=== PATIENT | male | born 1965 | race Caucasian/White ===

== ENCOUNTER 2021-11-04 11:14 | Emergency (ER) | payer OTHER ==
[2021-11-04 11:25] VITALS: BP 101/69; PULSE 118; TEMP 101; BMI 26.6
[2021-11-04] MEDS ORDERED: IBUPROFEN 400 MG TABLET (FP) PO ONE ×2 (11:45→11:50)
== END 2021-11-04 12:30 | disposition home or self-care (01) ==
LOC: JER 11:14
DX: J06.9 Acute upper respiratory infection, unspecified (principal); R05.1 Acute cough; R09.81 Nasal congestion
CPT/HCPCS: 71046-TC-FY; 99283-25